=== PATIENT | female | born 1990 | race Two or more races ===

== ENCOUNTER 2021-05-27 16:16 | Emergency (ER) | payer OTHER ==
[~2021-05-27] VITALS: Ht 144.8 cm; Wt 76.1 kg
[2021-05-27 16:34] VITALS: BP 139/80
--- NOTE | 2021-05-27 20:03 | PHYS DOC ---
Past Medical History Past Medical History: Hypothyroid Additional Past Medical Histor: thyroid problems (ALEJANDRO HATHAWAY APRN) Past Surgical History: No Surgical History (ALEJANDRO HATHAWAY APRN) Smoking Status: Never Smoker Alcohol Use: None Drug Use: Marijuana (ALEJANDRO HATHAWAY APRN) Adult General Chief Complaint Chief Complaint: OTHER COMPLAINTS HPI HPI Patient is a 30-year-old female who presents to the ED via POV with complaints of intermittent pain and burning in her mid chest and left chest x1 week. She denies any acid reflux issues. EKG was performed after arrival and showed normal sinus rhythm and she is without STEMI. Upon assessment, patient's complaint is intermittent bilateral swollen hands x 5 days with some itching and discomfort up to her upper arms. She endorses nausea/vomiting over the past week and has vomited once today. She denies nausea during assessment and states that the swelling is not as bad as it has been over the past several day. She states she has been drinking fluids but has had a decreased appetite. She denies any shortness of breath, dizziness, or cough. 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 (ALEJANDRO HATHAWAY APRN) Review of Systems Review of Systems Constitutional: Denies fever or chills [] Eyes: Denies change in visual acuity, redness, or eye pain [] HENT: Denies nasal congestion or sore throat [] Respiratory: Denies cough or shortness of breath [] Cardiovascular: No additional information not addressed in HPI [] GI: Denies abdominal pain, nausea, vomiting, bloody stools or diarrhea [] Musculoskeletal: Denies back pain and normal ROM [] Integument: Negative except HPI Neurologic: Denies headache, dizziness, focal weakness or sensory changes [] All other systems were reviewed and found to be within normal limits, except as documented in this note. (ALEJANDRO HATHAWAY APRN) Allergies Allergies Allergies Coded Allergies Type Severity Reaction Last Updated Verified shellfish derived Allergy Severe Swelling 06/29/14 Yes (JACQUIE LUJAN DO) Physical Exam Physical Exam Constitutional: Well developed, well nourished, no acute distress, non-toxic appearance. [] HENT: Normocephalic, atraumatic, bilateral external ears normal, oropharynx moist, no oral exudates, nose normal. [] Eyes: PERRL, EOMI, conjunctiva normal, no discharge. [] Neck: Normal range of motion, no tenderness, supple, no stridor. [] Cardiovascular: Heart rate regular rhythm, no murmur [] Lungs & Thorax: Bilateral breath sounds clear to auscultation with good respiratory effort [] Abdomen: Bowel sounds normal, soft, no tenderness, no masses, no pulsatile masses. [] Skin: Warm, dry, scratches and minimal redness to bilateral forearms[] Back: No tenderness and ambulates upright. [] Extremities: No cyanosis, no clubbing, ROM intact, sensation intact and capillary refill < 3 sec. [] Neurologic: Alert and oriented X 3, normal motor function, normal sensory function, no focal deficits noted. [] Psychologic: Affect normal, judgement normal, mood normal. [] (ALEJANDRO HATHAWAY APRN) Current Patient Data Vital Signs Vital Signs Date Time Temp Pulse Resp B/P (MAP) Pulse Ox O2 Delivery O2 Flow Rate FiO2 05/27/21 16:34 98.2 65 12 139/80 (99) 98 Room Air 98.2 ([facility]) Lab Values Laboratory Tests Test 05/27/21 21:25 05/27/21 21:29 05/27/21 21:40 Urine Collection Type Unknown Urine Color Yellow Urine Clarity Cloudy Urine pH 6.0 (<5.0-8.0) Urine Specific Palmer 1.010 (1.000-1.030) Urine Protein Negative mg/dL (NEG-TRACE) Urine Glucose (UA) Negative mg/dL (NEG) Urine Ketones (Stick) Negative mg/dL (NEG) Urine Blood Trace (NEG) Urine Nitrite Negative (NEG) Urine Bilirubin Negative (NEG) Urine Urobilinogen Dipstick 0.2 mg/dL (0.2 mg/dL) Urine Leukocyte Esterase Negative (NEG) Urine RBC 0 /HPF (0-2) Urine WBC Occ /HPF (0-4) Urine Squamous Epithelial Cells Many /LPF Urine Bacteria Moderate /HPF (0-FEW) Urine Test Negative (NEG) Glucose (Fingerstick) 80 mg/dL (70-99) POC Urine HCG, Qualitative Hcg negative (Negative) ([facility]) Lab Values Laboratory Tests Test 05/27/21 21:29 05/27/21 21:40 Glucose (Fingerstick) 80 mg/dL (70-99) POC Urine HCG, Qualitative Hcg negative (Negative) (ALEJANDRO HATHAWAY APRN) EKG EKG [] Interpretation Time: EKG completed at [address] Pinzon. No STEMI, sinus rhythm and rate is 68, QTc is 394; interpolated atrial premature complexes, otherwise normal. (ALEJANDRO HATHAWAY APRN) Radiology/Procedures Radiology/Procedures [] (ALEJANDRO HATHAWAY APRN) Course & Med Decision Making Course & Med Decision Making The patient is a 30-year-old female who presents to the ED with multiple complaints. She states that she has been having intermittent pain/burning in her mid chest and left chest over the past week. EKG was performed and was negative for STEMI. She was normal sinus rhythm. She also complains of bilateral swollen hands, intermittently over the past 5 days, with itching and redness. Possibly slight swelling noted to hands with minimal redness and scratching to bilateral forearms. She endorses nausea vomiting over the past week and has vomited once today, but states that she is not nauseous upon examination. She states that she has been tolerating p.o. fluids, but has had a decreased appetite. Her BMI is 36. Encouraged advancing diet as tolerable. I discussed with patient EKG findings as well as the need to follow-up with PCP for further evaluation and treatment or return to the ER if any new or worsening symptoms. Strict return precautions were also discussed at length. Patient voiced understanding and agreement with the plan. Patient is hemodynamically stable at the time of disposition. [] (ALEJANDRO HATHAWAY APRN) Course & Med Decision Making This patient was initially seen by the nurse practitioner. The patient has multiple complaints. I was unable to ascertain exactly what the main chief complaint was based on the presentation given to me by the nurse practitioner, so I saw the patient myself, I completed a full H&P myself. Please see accompanying information for details. The patient reports that over a week ago she had 1 episode of sharp chest pain that lasted "just a second" with associated dyspnea. She has not had any issues of chest pain since that time, no exertional chest pain, no exertional dyspnea, no PND orthopnea. She reports no cough, hemoptysis, dizziness, diaphoresis, nausea, vomiting. Denies syncope. Denies lower extremity pain. She reports that she has had intermittent episodes of bilateral hand itching, and sensation that both of her hands are swollen. She notices this most commonly after work. She reports that she scratches them, and they become slightly red occasionally, but she has never developed a rash or hives. She does not have any subjective discomfort or subjective pruritus at this time, she manifest no evidence of extremity swelling. Ultimately, she reports that she was scared that she had a "clot in her arm." She also reports that when she is around cold, cold water, cold temperatures, she does notice that sometimes the skin on her fingers turns white. She is not complaining of any chest pain symptoms at present, and she is adamant that she has not had an episode of the chest pain since last week. On exam, she has a normal HEENT exam, normal neck exam, normal chest, heart and lung exam, there is no evidence of peripheral edema, no evidence of skin abnormalities, no evidence of rash, warmth, erythema, no evidence of cyanosis, no evidence of poor perfusion. She has +2 radial pulses bilaterally. [id number] glucose is 80. UA is unremarkable. She is currently on her menses. She does allude to some morning time nausea and vomiting symptoms, this occurred last week as well, and has since resolved. She has no nausea at present. She admits that she has some significant anxiety issues, and she has not seen her primary care doctor in some time. She reports that she has a history of hypothyroidism, she has not taken her medication for this in many years. I have strongly encouraged her to contact her PCP for follow-up of all of her chronic conditions, as well as discussion of care for her anxiety and stress issues. I assured her that she manifest no evidence of acute vascular compromise. She does describe some Raynaud's phenomenon, which I explained can be treated with keeping hands away from cold. The nurse practitioner reported to me that she was going to prescribe her prednisone, I told her that this is not appropriate based on the patient's clinical exam findings, she manifest no evidence of acute inflammatory process or allergic reaction. I did tell her that if she does experience some pruritus, she may take [id number] antihistamines for this. Return precautions are provided to the patient. (LE,JACQUIE M DO) Dragon Disclaimer Dragon Disclaimer This electronic medical record was generated, in whole or in part, using a voice recognition dictation system. (ALEJANDRO HATHAWAY APRN) Departure Departure Impression: Primary Impression: Pruritus of both hands Additional Impressions: Anxiety History of chest pain Disposition: HOME / SELF CARE / HOMELESS Condition: STABLE Referrals: NO PCP (PCP) Patient Instructions: Anxiety and Panic Attacks, Chest Pain (Nonspecific), Nausea and Vomiting, Raynaud's Syndrome Additional Instructions: You were seen today in the ER for intermittent chest discomfort over the past week. Your heart tracing was unremarkable. You were also seen for bilateral, intermittent hand swelling with itching to forearms. Education provided on Raynaud's and lotion use. I have given you information with your discharge instructions to follow-up with clinics or a physician in the area to establish primary care. Please call tomorrow for a follow-up visit for continued care. Please return to the ED if you experience or develop any worsening symptoms including cough, shortness of breath, worsening chest pain, uncontrollable vomiting, or any other new or concerning symptoms. Problem Qualifiers ALEJANDRO HATHAWAY APRN May 27, 2021 20:02 JACQUIE LUJAN DO May 27, 2021 22:24
[2021-05-27] MEDS ORDERED: PRED20TA PO (20:17)
[2021-05-27] MEDS ORDERED: ONDA4TAB12 PO (20:18)
[2021-05-27 21:43] LABS: BILIRUBIN,URINE NEGATIVE (NEG); CLARITY,URINE CLOUDY; COLOR,URINE YELLOW; NITRITE,URINE NEGATIVE (NEG); PROTEIN,URINE NEGATIVE (NEG-TRACE); UROBILINOGEN,URINE 0.2 mg/dL (0.2 mg/dL)
[2021-05-27 21:51] LABS: U PREG PATIENT NEGATIVE (NEG)
[2021-05-27 21:54] LABS: BACTERIA,URINE MODERATE /HPF (0-FEW); RBC,URINE 0 /HPF (0-2); WBC,URINE OCC /HPF (0-4)
--- NOTE | 2021-05-28 06:48 | EKG ---
[facility] [address] [place] [address] Test Date: 2021-05-27 Test Time: 20:21:41 Pat Name: ELIDA KAT Department: Room: Gender: F Instrument Technologist: : 1990 Requested By: ALEJANDRO HATHAWAY Order Number: [id number] Reading MD: Asif Gauthier MD Measurements Intervals [employer] Rate: 66 P: [place]: QRS: 28 QRSD: 86 T: 30 QT: 380 QTc: 400 Interpretive Statements SR BASELINE ARTIFACT Electronically Signed On 05-28-2021 8:43:10 [employer] by sAif Gauthier MD
== END 2021-05-27 22:40 | disposition home or self-care (01) ==
LOC: ER 16:16
DX: L29.8 Other pruritus (principal); R07.89 Other chest pain; K21.9 Gastro-esophageal reflux disease without esophagitis; E03.9 Hypothyroidism, unspecified; Z91.013 Allergy to seafood
CPT/HCPCS: 81001; 81025; 82962; 87086; 93005; 99284

== ENCOUNTER → 2021-05-27 | Emergency (ER) | payer SELFPAY ==
[~2021-05-27] MED LIST: ONDA4TAB12 PO; PRED20TA PO
[2021-05-27 16:34] VITALS: BP 139/80
== END | disposition left against medical advice (07) ==
LOC: ER 18:37
DX: R03.0 Elevated blood-pressure reading, without diagnosis of hypertension (principal); Z53.21 Procedure and treatment not carried out due to patient leaving prior to being seen by health care provider